=== PATIENT | male | born 1990 | race Caucasian/White ===

== ENCOUNTER → 2019-07-31 15:00 | Outpatient (BNVA) | payer OTHER, SELFPAY | PROVIDERS: Family Provider Emergency Medicine; PCP Emergency Medicine; Visit Provider Internal Medicine | DX: B18.2 Chronic viral hepatitis C (principal) | CPT/HCPCS: 87522 ==

== ENCOUNTER 2020-11-29 13:55 | Emergency (ER) | payer OTHER, SELFPAY ==
[2020-11-29 14:54] VITALS: BP 150/79; PULSE 78; RESP 15; TEMP 36.7; O2SAT 96; BMI 23.0
[2020-11-29 15:09] VITALS: BP 141/84; PULSE 74; RESP 18; O2SAT 97
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
[2020-11-29 15:49] VITALS: BP 141/84; PULSE 74; RESP 18; O2SAT 97
== END 2020-11-29 15:49 | disposition home or self-care (01) ==
PROVIDERS: Emergency Provider Physician Assistant
DX: Z04.1 Encounter for examination and observation following transport accident (principal); S49.92XA Unspecified injury of left shoulder and upper arm, initial encounter; V49.9XXA Car occupant (driver) (passenger) injured in unspecified traffic accident, initial encounter
CPT/HCPCS: 73030; 99282